=== PATIENT | female | born 1975 | race Two or more races ===

== ENCOUNTER 2022-12-08 14:43 | Inpatient (IN) | payer BC, OTHER ==
[~2022-12-08] VITALS: Ht 165.1 cm; Wt 92.0 kg
[2022-12-08] MEDS ORDERED: HYDROcodone-ACET 10/325MG TAB PO ONE (15:00)
[2022-12-08 15:20] LABS: Basophils # (auto) 0.1 10 ^3/uL (0-0.2); Basophils % (auto) 0.7 % (0.0-2.0); Eosinophils # (auto) 0.1 10 ^3/uL (0-0.8); Eosinophils % (auto) 0.6 % (0.0-7.0); Hematocrit 42.1 % (36.0-46.0); Hemoglobin 14.4 g/dL (12.2-16.2); Lymphocytes # (auto) 2.1 10 ^3/uL (0.4-5.4); Lymphocytes % (auto) 13.4 % (10.0-50.0); Mean Corpuscular Hemoglobin 30.2 pg (28.0-32.0); Mean Corpuscular Hgb Conc. 34.2 g/dL (32.0-36.0); Mean Corpuscular Volume 88.2 fL (80.0-100.0); Monocytes # (auto) 1.5 10 ^3/uL (0-1.3); Monocytes % (auto) 9.5 % (0.0-12.0); Neutrophils # (auto) 12.1 10 ^3/uL (1.6-8.6); Neutrophils % (auto) 75.8 % (37.0-80.0); Nucleated Red Blood Cells % 0.1 %; Red Blood Cells 4.78 10^6/uL (4.0-5.20)
[2022-12-08 15:38] LABS: Albumin 3.8 g/dL (3.4-5.0); Calcium 9.5 mg/dL (8.5-10.1); Potassium 4.1 mmol/L (3.5-5.1)
[2022-12-08 15:42] LABS: BUN/Creatinine Ratio 20.3 (10.0-20.0); Bilirubin, Total 0.8 mg/dL (0.2-1.0); Total Protein 7.1 g/dL (6.4-8.2)
[2022-12-08 16:18] LABS: Urine Bacteria NONE SEEN /hpf (None Seen); Urine Blood Negative /uL (Negative); Urine Specific Gravity 1.015 (1.001-1.035); Urine WBC 1 /hpf (0 - 5)
[2022-12-08] MEDS ORDERED: SODIUM CHLORIDE 0.9% 1,000 ML IV ONE (17:30)
[2022-12-08 18:34] LABS: INR 1.16 (0.9-1.15)
[2022-12-08 18:38] LABS: Magnesium 2.3 mg/dL (1.6-2.6)
[2022-12-08] MEDS ORDERED: ONDANSETRON HCL 4 MG/2 ML VIAL IV PRN (19:45)
[2022-12-08 21:18] VITALS: BP_SYST 106; BP_SYST 109; BP_DIAS 52
[2022-12-08] MEDS: SODIUM CHLORIDE 0.9% 1,000 ML IV SCH (21:53)
[2022-12-08] MEDS: MORPHINE SULFATE INJ 2 MG/ml SYRG IV PRN (21:55)
[2022-12-08 22:15] VITALS: BP 108/53
[2022-12-08] MEDS ORDERED: METO25TA93 PO (23:45)
[2022-12-08] MEDS ORDERED: PARO30TA99 PO (23:45)
[2022-12-08] MEDS ORDERED: HYDR-4902 PO (23:45)
[2022-12-08] MEDS: PIPERACILLIN-TAZOB 3.375GM 100 ML IV SCH (23:56)
[2022-12-09] VITALS (8 sets, daily range): BP systolic 91–149; BP diastolic 50–72
[2022-12-09] MEDS: SODIUM CHLORIDE 0.9% 1,000 ML IV SCH (04:05)
[2022-12-09] MEDS: PIPERACILLIN-TAZOB 3.375GM 100 ML IV SCH ×4 (05:54→23:23)
[2022-12-09 07:00] LABS: Basophils # (auto) 0 10 ^3/uL (0-0.2); Basophils % (auto) 0.5 % (0.0-2.0); Eosinophils # (auto) 0.2 10 ^3/uL (0-0.8); Eosinophils % (auto) 2.6 % (0.0-7.0); Hematocrit 38.5 % (36.0-46.0); Hemoglobin 13.2 g/dL (12.2-16.2); Lymphocytes # (auto) 2.1 10 ^3/uL (0.4-5.4); Lymphocytes % (auto) 24.5 % (10.0-50.0); Mean Corpuscular Hemoglobin 30.5 pg (28.0-32.0); Mean Corpuscular Hgb Conc. 34.4 g/dL (32.0-36.0); Mean Corpuscular Volume 88.6 fL (80.0-100.0); Monocytes # (auto) 0.9 10 ^3/uL (0-1.3); Monocytes % (auto) 9.9 % (0.0-12.0); Neutrophils # (auto) 5.4 10 ^3/uL (1.6-8.6); Neutrophils % (auto) 62.5 % (37.0-80.0); Nucleated Red Blood Cells % 0.2 %; Red Blood Cells 4.34 10^6/uL (4.0-5.20); White Blood Cell 8.6 10^3/uL (4.4-10.8)
[2022-12-09 07:30] LABS: Albumin 3.3 g/dL (3.4-5.0); Calcium 8.9 mg/dL (8.5-10.1); Potassium 3.4 mmol/L (3.5-5.1)
[2022-12-09 07:35] LABS: BUN/Creatinine Ratio 15.2 (10.0-20.0); Bilirubin, Total 0.8 mg/dL (0.2-1.0); Total Protein 6.6 g/dL (6.4-8.2)
[2022-12-09] MEDS ORDERED: SUCCINYLCHOLINE CHLORIDE 20 MG/ML 10ML VIAL IV ONE (08:04)
[2022-12-09] MEDS ORDERED: fentaNYL CITRATE 100 MCG/2 ML VL ONE (08:06)
[2022-12-09] MEDS ORDERED: MIDAZOLAM HCL 2MG/2ML 2ml VIAL (1mg/ml) ONE (08:06)
[2022-12-09] MEDS ORDERED: PROPOFOL 10 MG/ML 20 ML IV ONE (08:08)
[2022-12-09] MEDS ORDERED: ROCURONIUM 10MG/ML 10ML VIAL IV ONE (08:09)
[2022-12-09] MEDS ORDERED: ETOMIDATE (2MG/ML) 20ML VIAL IV ONE (08:17)
[2022-12-09] MEDS ORDERED: DexAMETHasone SOD PHOS 10MG/1ML VIAL INJ ONE (08:25)
[2022-12-09] MEDS ORDERED: methylPREDNISolone SOD SUCC 125 MG/2 ML VL IV ONE (08:30)
[2022-12-09] MEDS: BUPIVACAINE W/ EPINEPH 0.25% INJ 50ML MDV ONE ×2 (08:48→11:02)
[2022-12-09] MEDS ORDERED: GLYCOPYRROLATE 0.2 MG/ML 1ML VIAL ONE (08:52)
[2022-12-09] MEDS ORDERED: NEOSTIGMINE 1 MG/ML INJ (10mg/10ML VIAL) ONE (08:52)
[2022-12-09] MEDS ORDERED: SUGAMMADEX 200mg/2ml Vial (100MG/ML) IV ONE (09:02)
[2022-12-09] MEDS ORDERED: METOCLOPRAMIDE HCL 5MG/ml INJ 2ml VIAL IV PRN (09:15)
[2022-12-09] MEDS ORDERED: fentaNYL CITRATE 100 MCG/2 ML VL IV PRN (09:15)
[2022-12-09] MEDS ORDERED: POVIDONE IODINE 10 % TOPICAL OINT 30GM TOP ONE (10:19)
[2022-12-09] MEDS: PANTOPRAZOLE 40 MG/10 ML VIAL INJ IV SCH (11:00)
[2022-12-09] MEDS: MORPHINE SULFATE INJ 2 MG/ml SYRG IV PRN ×3 (11:45→22:15)
[2022-12-09] MEDS: POTASSIUM CHLORIDE 20 MEQ in D5W/LACTATED RINGERS 1,000 ML IV SCH ×2 (13:36→19:06)
[2022-12-10] MEDS: POTASSIUM CHLORIDE 20 MEQ in D5W/LACTATED RINGERS 1,000 ML IV SCH (05:12)
[2022-12-10] MEDS: PIPERACILLIN-TAZOB 3.375GM 100 ML IV SCH ×2 (05:17→11:53)
[2022-12-10 05:36] VITALS: BP 106/66
[2022-12-10 06:54] LABS: Basophils # (auto) 0 10 ^3/uL (0-0.2); Basophils % (auto) 0.1 % (0.0-2.0); Eosinophils # (auto) 0 10 ^3/uL (0-0.8); Eosinophils % (auto) 0.2 % (0.0-7.0); Hemoglobin 12.8 g/dL (12.2-16.2); Lymphocytes # (auto) 1.6 10 ^3/uL (0.4-5.4); Lymphocytes % (auto) 10.3 % (10.0-50.0); Mean Corpuscular Hemoglobin 30.4 pg (28.0-32.0); Mean Corpuscular Hgb Conc. 33.6 g/dL (32.0-36.0); Mean Corpuscular Volume 90.5 fL (80.0-100.0); Monocytes # (auto) 0.9 10 ^3/uL (0-1.3); Monocytes % (auto) 5.7 % (0.0-12.0); Neutrophils # (auto) 13.1 10 ^3/uL (1.6-8.6); Neutrophils % (auto) 83.7 % (37.0-80.0); Red Cell Distribution Width 13.7 % (11.8-14.3); White Blood Cell 15.6 10^3/uL (4.4-10.8)
[2022-12-10 07:19] LABS: Calcium 9.1 mg/dL (8.5-10.1); Potassium 3.9 mmol/L (3.5-5.1)
[2022-12-10 07:21] LABS: BUN/Creatinine Ratio 13.6 (10.0-20.0)
[2022-12-10 08:30] VITALS: BP 112/64
[2022-12-10 09:00] VITALS: BP 122/64
[2022-12-10] MEDS: PANTOPRAZOLE 40 MG/10 ML VIAL INJ IV SCH (09:12)
[2022-12-10] MEDS ORDERED: HYDROcodone-ACET 5/325MG TAB PO ONE (11:00)
[2022-12-10] MEDS ORDERED: DOCUSATE SOD 100 MG CAP PO ONE (11:00)
[2022-12-10] MEDS ORDERED: HYDR-4902 PO (11:01)
[2022-12-10] MEDS ORDERED: AMOX500T86 PO (11:04)
[2022-12-10 12:00] VITALS: BP 112/64
== END 2022-12-10 15:30 | disposition home or self-care (01) | DRG 342 ==
LOC: ER 14:43 → OVERFLOW 19:46 → WEST WING 21:05
PROVIDERS: ADMIT Nurse Practitioner Family; ATTEND Internal Medicine Pulmonary Disease
PROC: 0DTJ4ZZ Resection of Appendix, Percutaneous Endoscopic Approach (ICD-10-PCS; principal; 2022-12-09 08:10)
DX: K35.80 Unspecified acute appendicitis (principal); E87.1 Hypo-osmolality and hyponatremia; K80.20 Calculus of gallbladder without cholecystitis without obstruction; K76.0 Fatty (change of) liver, not elsewhere classified; F41.9 Anxiety disorder, unspecified; R00.2 Palpitations; F17.210 Nicotine dependence, cigarettes, uncomplicated; E66.01 Morbid (severe) obesity due to excess calories; Z90.710 Acquired absence of both cervix and uterus; Z98.84 Bariatric surgery status; Z68.33 Body mass index [BMI] 33.0-33.9, adult
CPT/HCPCS: 36415; 74176; 80048; 80053; 81001; 81025; 83605; 83690; 83735; 85025; 85610; 86850; 86900; 86901; C9113; G0378; J0330; J1100; J2250; J2405; J2543; J2704